=== PATIENT | female | born 1975 | race African-American/Black ===

== ENCOUNTER 2017-12-31 17:47 | Emergency (ER) | payer OTHER ==
[~2017-12-31] VITALS: Ht 2.5 cm; Wt 86.2 kg
[~2017-12-31 17:47] MED LIST: DIA5 PO; GABA-490 PO; IBU600 PO; OXYC-865 PO
--- NOTE | 2017-12-31 17:59 | ER Report ---
History and Physical Time Seen By MD: 17:57 Hx. of Stated Complaint: headache dizziness blurred vision weakness HPI/ROS 3-year-old female was shopping at [employer] had not eaten since her noon meal felt like she had blurred vision and felt dizzy and weak and was able to sit down after sitting for about 10 minutes she began feeling better at that time came to the hospital that she's had similar symptoms before has not been seen by a physician Allergies: Coded Allergies: No Known Drug Allergies (Unverified , 01/12/15) Home Meds Reported Medications Ibuprofen (Motrin) 600 Mg Tab, 600 MG PO Q6H Y, #30 TAB 0 Refills TAKE 1 TABLET BY MOUTH EVERY 6 HOURS NEEDED FOR PAIN. TAKE WITH FOOD. 11/22/11 Discontinued Reported Medications Diazepam (VALIUM) 5 Mg Tablet, 5 MG PO Q6H Y for SPASMS, #10 TAB 0 Refills TAKE ONE TABLET BY MOUTH TWO TO THREE TIMES A DAY 12/14/14 Oxycodone Hcl/Acetaminophen (PERCOCET 5-325 MG TABLET) 1 Each Tablet, 1-2 EACH PO Q6-8H Y for PAIN, #40 0 Refills 12/14/14 Gabapentin (NEURONTIN) 300 Mg Capsule, 300 MG PO QDAY, CAPSULE 12/11/14 Past Medical/Surgical History negative Hx Smoking: No Smoking Status: Never Smoker Family History of: HTN Constitutional Vital Sign - Last 24 Hours 12/31/17 12/31/17 12/31/17 12/31/17 17:47 18:02 18:12 18:17 Temp 98.7 Pulse ? 78 ??? Resp 16 B/P (MAP) 120/75 Pulse Ox 98 O2 Delivery Room Air 12/31/17 12/31/17 12/31/17 12/31/17 18:24 18:32 18:47 19:02 Pulse 80 ??? 73 Resp 19 10 B/P (MAP) 121/81 (94) Pulse Ox 97 97 97 12/31/17 12/31/17 12/31/17 12/31/17 19:06 19:17 19:32 19:37 Pulse 79 76 78 Resp 12 15 B/P (MAP) 121/73 (89) Pulse Ox 96 98 12/31/17 12/31/17 12/31/17 12/31/17 19:52 20:07 20:22 20:37 Pulse 82 74 77 76 Resp 13 11 12 9 Pulse Ox 95 97 95 96 12/31/17 12/31/17 20:52 21:07 Pulse 75 ??? Resp 18 Pulse Ox 93 Intake and Output 12/31/17 12/31/17 01/01/18 15:00 23:00 07:00 Intake Total 1000 ml Balance 1000 ml Physical Exam 42 year old alert and oriented mild distress, ismael eom intact cranial nerves 2- 12 intact, tm non reddened, throat non reddened no lymphadenopathy, hrr lungs cta, abd soft bs x 4, nunez , no peripheral edema Medical Decision Making Data Points Result Diagram: 12/31/17181612/31/171816 Laboratory Hematology Test 12/31/17 18:17 Red Blood Count 5.28 M/uL (4.17-5.56) Mean Corpuscular Volume 91.3 fL (80.0-96.0) Mean Corpuscular Hemoglobin 30.7 pg (26.0-33.0) Mean Corpuscular Hemoglobin Concent 33.6 g/dL (32.0-36.0) Red Cell Distribution Width 13.2 % (11.5-14.5) Mean Platelet Volume 7.1 fL (7.2-11.1) Neutrophils (%) (Auto) 65.7 % (39.4-72.5) Lymphocytes (%) (Auto) 23.6 % (17.6-49.6) Monocytes (%) (Auto) 8.5 % (4.1-12.4) Eosinophils (%) (Auto) 1.1 % (0.4-6.7) Basophils (%) (Auto) 1.1 % (0.3-1.4) Nucleated RBC Relative Count (auto) 0.0 /100WBC Neutrophils # (Auto) 5.8 K/uL (2.0-7.4) Lymphocytes # (Auto) 2.1 K/uL (1.3-3.6) Monocytes # (Auto) 0.7 K/uL (0.3-1.0) Eosinophils # (Auto) 0.1 K/uL (0.0-0.5) Basophils # (Auto) 0.1 K/uL (0.0-0.1) Nucleated RBC Absolute Count (auto) 0.00 K/uL D-Dimer Quantitative (PE/DVT) < 0.27 ug/ml (0-0.50) Sodium Level 135 mmol/L (137-145) Potassium Level 4.0 mmol/L (3.5-5.0) Chloride Level 98 mmol/L (98-107) Carbon Dioxide Level 26 mmol/L (22-31) Blood Urea Nitrogen 12 mg/dl (7-18) Creatinine 0.90 mg/dl (0.52-1.04) Glomerular Filtration Rate Calc > 60.0 Random Glucose 81 mg/dl (75-110) Calcium Level 9.4 mg/dl (8.4-10.2) Total Bilirubin 0.6 mg/dl (0.2-1.3) Aspartate Amino Transf (AST/SGOT) 29 U/L (0-35) Alanine Aminotransferase (ALT/SGPT) 27 U/L (0-56) Alkaline Phosphatase 87 U/L (0-126) Troponin I < 0.012 ng/ml Total Protein 8.1 gm/dl (6.3-8.2) Albumin 4.2 g/dl (3.5-5.0) Human Chorionic Gonadotropin, Qual Negative (NEGATIVE) Chemistry Test 12/31/17 18:17 White Blood Count 8.8 k/uL (4.5-11.0) Red Blood Count 5.28 M/uL (4.17-5.56) Hemoglobin 16.2 g/dL (12.0-16.0) Hematocrit 48.2 % (34.0-47.0) Mean Corpuscular Volume 91.3 fL (80.0-96.0) Mean Corpuscular Hemoglobin 30.7 pg (26.0-33.0) Mean Corpuscular Hemoglobin Concent 33.6 g/dL (32.0-36.0) Red Cell Distribution Width 13.2 % (11.5-14.5) Platelet Count 257 K/uL (150-450) Mean Platelet Volume 7.1 fL (7.2-11.1) Neutrophils (%) (Auto) 65.7 % (39.4-72.5) Lymphocytes (%) (Auto) 23.6 % (17.6-49.6) Monocytes (%) (Auto) 8.5 % (4.1-12.4) Eosinophils (%) (Auto) 1.1 % (0.4-6.7) Basophils (%) (Auto) 1.1 % (0.3-1.4) Nucleated RBC Relative Count (auto) 0.0 /100WBC Neutrophils # (Auto) 5.8 K/uL (2.0-7.4) Lymphocytes # (Auto) 2.1 K/uL (1.3-3.6) Monocytes # (Auto) 0.7 K/uL (0.3-1.0) Eosinophils # (Auto) 0.1 K/uL (0.0-0.5) Basophils # (Auto) 0.1 K/uL (0.0-0.1) Nucleated RBC Absolute Count (auto) 0.00 K/uL D-Dimer Quantitative (PE/DVT) < 0.27 ug/ml (0-0.50) Glomerular Filtration Rate Calc > 60.0 Calcium Level 9.4 mg/dl (8.4-10.2) Total Bilirubin 0.6 mg/dl (0.2-1.3) Aspartate Amino Transf (AST/SGOT) 29 U/L (0-35) Alanine Aminotransferase (ALT/SGPT) 27 U/L (0-56) Alkaline Phosphatase 87 U/L (0-126) Troponin I < 0.012 ng/ml Total Protein 8.1 gm/dl (6.3-8.2) Albumin 4.2 g/dl (3.5-5.0) Human Chorionic Gonadotropin, Qual Negative (NEGATIVE) Coagulation Test 12/31/17 18:17 D-Dimer Quantitative (PE/DVT) < 0.27 ug/ml EKG/Imaging EKG Interpretation EKG 1757 normal sinus rhythm ventricular rate 72 QTc is 418 Monitor Interpretation: Normal Sinus Rhythm ED Course/Re-evaluation Clinical Indication for ER IV: Hydration ED Course IV fluids 1 L normal saline given IV Blasch Zofran 4 mg IV for nausea felt better after treatment noted workup tonight was negative tyroid studies are pending she'll follow with primary care physician in one to 2 days return as needed Decision to Disposition Date: Dec 31, 2017 Decision to Disposition Time: 19:50 Depart Departure Latest Vital Signs Vital Signs Date Time Temp Pulse Resp B/P (MAP) Pulse Ox O2 Delivery O2 Flow Rate FiO2 12/31/17 21:07 ??? 12/31/17 20:52 18 93 12/31/17 19:06 121/73 (89) 12/31/17 18:12 98.7 Room Air Impression: Primary Impression: Dehydration Additional Impression: Weakness Condition: Improved Disposition: HOME OR SELF-CARE Referrals: [facility] Days Patient Instructions: Dehydration (ED), Weakness (ED) Additional Instructions: Drink plenty of fluids, follow-up your primary care physician as you have already organized Problem Qualifiers AQUILINO GREEN Dec 31, 2017 17:59
[2017-12-31] MEDS ORDERED: NS(*) 0.9% 1000 ML BAG 1,000 ML IV ONE (18:02)
[2017-12-31] MEDS ORDERED: ONDANSETRON 4 MG/2 ML VIAL IVP ONE (18:05)
--- NOTE | 2017-12-31 18:12 | EKG ---
FACILITY: [facility] - [place] PATIENT NAME: LUIS ALFORD : [id number] MR: [id number] V: [id number] EXAM DATE: ORDERING PHYSICIAN: AQUILINO GREEN TECHNOLOGIST: PAULINE Hidalgo Reason : chest tightness Blood Pressure : / mmHG Vent. Rate : 072 BPM Atrial Rate : 072 BPM P-R Int : 128 ms QRS Dur : 080 ms QT Int : 382 ms P-R-T Axes : 050 066 023 degrees QTc Int : 418 ms Sinus rhythm Possible left atrial enlargement No acute appearing findings No previous ECGs available Confirmed by KY HESS ([id number]) on 01/01/2018 5:45:40 AM Referred By: Confirmed By:KY HESS
[2017-12-31 18:30] LABS: PLATELET COUNT, AUTOMATED 257 K/uL (150-450)
[2017-12-31] MEDS ORDERED: fentaNYL CITR 100 MCG/2 ML AMP ONE (18:58)
[2017-12-31 19:06] VITALS: BP 121/73
--- NOTE | 2017-12-31 19:13 | RADIOLOGY IMAGING REPORT ---
FACILITY: [facility] PATIENT NAME: Linda Peoples : 1975 MR: [id number] V: [id number] EXAM DATE: ORDERING PHYSICIAN: AQUILINO GREEN TECHNOLOGIST: Location: [facility] Patient: Linda Peoples : 1975 Visit/Account:[id number] Date of Sevice: 12/31/2017 CT OF THE BRAIN WITHOUT CONTRAST HISTORY: Dizzy. Syncope. PROCEDURE: 3.0 mm contiguous axial sections were performed through the brain. Sagittal and coronal r eformats were submitted. COMPARISON: None FINDINGS: BRAIN: Brain and intracranial structures: There is no mass lesion, hemorrhage or acute infarct. Orbits (included portions): Normal. Scalp: Normal. Skull: Normal. Paranasal sinuses and mastoid air cells (included portions): Normal. IMPRESSION: No evidence of acute intracranial abnormality by CT. One of the following dose optimization techniques was utilized in the performance of this exam: Autom ated exposure control; adjustment of the mA and/or kV according to the patient's size; or use of an i terative reconstruction technique. Specific details can be referenced in the facility's radiology C T exam operational policy. Report Dictated By: Nena Layne MD at 12/31/2017 7:02 PM Report E-Signed By: Nena Layne MD at 12/31/2017 7:09 PM WSN:[id number]
--- NOTE | 2017-12-31 20:08 | RADIOLOGY IMAGING REPORT ---
FACILITY: [facility] - [place] PATIENT NAME: Linda Peoples : 1975 MR: [id number] V: [id number] EXAM DATE: ORDERING PHYSICIAN: AQUILINO GREEN TECHNOLOGIST: Location: [facility] Patient: Linda Peoples : 1975 Visit/Account:[id number] Date of Sevice: 12/31/2017 EXAMINATION: Portable chest radiograph single view at 6:35 PM HISTORY: Chest pain. COMPARISON: None. FINDINGS: A single portable AP view of the chest is obtained. Lines/tubes: None. Lungs/pleura: No focal consolidation or pleural effusion. Pulmonary vascularity is within normal rajan its. No evidence of pneumothorax. Heart: Normal heart size. Mediastinum: Negative. Bony structures/body wall: Negative. IMPRESSION: No radiographic evidence of acute cardiopulmonary disease. Report Dictated By: Neeraj Wilkins MD at 12/31/2017 8:03 PM Report E-Signed By: Neeraj Wilkins MD at 12/31/2017 8:04 PM WSN:[id number]
== END 2017-12-31 21:15 | disposition home or self-care (01) ==
LOC: ER 18:20
DX: E86.0 Dehydration (principal); R53.1 Weakness
CPT/HCPCS: 70450; 71045; 84443; 84484; 84703; 85025; 85379; 93005; 96361; 96374; 99284; J2405; J7030; 82040; 82247; 82310; 82374; 82435; 82565; 82947; 84075; 84132; 84155; 84295; 84450; 84460; 84520